=== PATIENT | male | born 1995 | race Asian ===

== ENCOUNTER 2023-11-02 16:27 | Emergency (ER) | payer OTHER ==
[~2023-11-02] VITALS: Ht 167.6 cm; Wt 74.8 kg
[2023-11-02 16:30] VITALS: TEMP 98.7
[2023-11-02] MEDS ORDERED: diphenhydrAMINE HCL 50 MG/ML VIAL ONE (17:06)
[2023-11-02] MEDS ORDERED: KETOROLAC TROMETHAMINE 15 MG/ML VIAL ONE (17:07)
[2023-11-02] MEDS ORDERED: METOCLOPRAMIDE HCL 10 MG/2 ML VIAL ONE (17:07)
[2023-11-02] MEDS: KETOROLAC TROMETHAMINE 15 MG/ML VIAL IV ONE (17:08)
[2023-11-02] MEDS: diphenhydrAMINE HCL 50 MG/ML VIAL IV ONE (17:08)
[2023-11-02] MEDS: METOCLOPRAMIDE HCL 10 MG/2 ML VIAL IV ONE (17:08)
[2023-11-02] MEDS: IV NS 0.9% 1,000 ML BAG IV ONE (17:08)
[2023-11-02 17:17] LABS: BASOPHILS # (AUTO) 0.1 K/uL (0.0-0.2); BASOPHILS % (AUTO) 0.8 % (0.0-2.0); EOSINOPHILS # (AUTO) 0.1 K/uL (0.0-0.7); EOSINOPHILS % (AUTO) 1.3 % (0.0-6.0); HEMATOCRIT 46 % (39-51); HEMOGLOBIN 15.9 g/dL (13.5-17.5); LYMPHOCYTES % (AUTO) 38.1 % (20.0-44.0); MEAN CORPUSCULAR HEMOGLOBIN 30 PG (26.0-33.0); MEAN CORPUSCULAR HGB CONC 34 g/dl (31.0-36.0); MEAN CORPUSCULAR VOLUME 88 fL (80-96); MONOCYTES # (AUTO) 0.6 K/uL (0.1-1.30); MONOCYTES % (AUTO) 7.2 % (2.0-12.0); NEUTROPHILS # (AUTO) 4.2 K/uL (1.8-8.9); NEUTROPHILS % (AUTO) 52.6 % (43.0-81.0); PLATELET COUNT (AUTO) 292 K/uL (150-450); RED BLOOD CELL COUNT(AUTO) 5.24 MIL/uL (4.5-6.0); RED CELL DISTRIBUTION WIDTH 12.8 % (11.5-15.0)
[2023-11-02 17:24] LABS: CALCIUM, SERUM 9.4 mg/dL (8.5-10.1); CREATININE 1.1 mg/dL (0.6-1.3); POTASSIUM 3.2 mmol/L (3.5-5.1)
[2023-11-02 17:30] LABS: ALBUMIN 4.1 g/dL (3.4-5.0); BILIRUBIN,DIRECT 0.1 mg/dL (0.0-0.2); BILIRUBIN,TOTAL 0.3 mg/dL (0.2-1.0)
[2023-11-02] MEDS ORDERED: KETO10TA2 PO (18:26)
[2023-11-02] MEDS ORDERED: PRED20TA PO (18:26)
[2023-11-02] MEDS ORDERED: DIPH-530 PO (18:26)
[2023-11-02 18:59] VITALS: BP 134/88; O2SAT 100
== END 2023-11-02 19:00 | disposition home or self-care (01) ==
LOC: ER 16:34
DX: R51.9 Headache, unspecified (principal); L50.9 Urticaria, unspecified; Z60.2 Problems related to living alone
CPT/HCPCS: 99285; 96374; 70450; 96361; 96375; 85025; 80048; 80076; 36415; J1200; J2765; J7030; J1885